=== PATIENT | female | born 1980 | race Caucasian/White ===

== ENCOUNTER 2016-07-16 02:20 | Emergency (ER) | payer BC ==
[2016-07-16 02:26] VITALS: BP 102/72
[2016-07-16] MEDS ORDERED: Sodium Chloride 0.9% 1,000 ML IV ONE (02:40)
[2016-07-16] MEDS ORDERED: Ketorolac 30 MG/ML SDV IVPUSH ONE (02:42)
[2016-07-16] MEDS ORDERED: Ondansetron 4 MG/2 ML SDV IVPUSH ONE (02:43)
[2016-07-16] MEDS ORDERED: Promethazine 12.5 MG in Sodium Chloride 0.9% 100 ML IV ONE (02:44)
--- NOTE | 2016-07-16 02:51 | EDM.PDOC ---
ED HPI GENERAL MEDICAL PROBLEM - General Chief Complaint: General Stated Complaint: NV about 10pm after taken zithromax about 2hrs prior has vomitted x 2 after meds with increase Nausea and diarrhea x 3 DX with pneumonia today in clinic has been taken lots of motrin feels dry and tired Time Seen by Provider: 07/16/16 02:30 Source of Information: Reports: Patient History Limitations: Reports: No limitations - History of Present Illness Onset: today Onset Date: 07/15/16 Onset Time: 22:00 Location: Reports: abdomen Quality: Reports: Burning Severity: moderate Improves with: Reports: None Worsens with: Reports: None Associated Symptoms: Reports: cough, fever/chills, malaise, nausea/vomiting 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, 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, 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(s) (VSS noted tachy 110 sats normal RR normal ) Generalized Pain Score (Numeric/FACES): 4 - Related Data Allergies Allergy/AdvReac Type Severity Reaction Status Date / Time Penicillins Allergy Rash Verified 07/16/16 02:22 Home Meds: Home Meds Promethazine [Phenergan] 25 mg PO Q6H #12 tablet 07/16/16 [Rx] Past Medical History - Past Health History Medical/Surgical History: Denies Medical/Surgical History HEENT History: Reports: None Cardiovascular History: Reports: None Respiratory History: Reports: None Genitourinary History: Reports: None 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: Other (see below) Other OB/BYN History: 2 C sections Musculoskeletal History: Reports: None Endocrine/Metabolic History: Reports: Other (see below) Other Endocrine/Metabolic History: gestational diabetes Immunologic History: Reports: None - Infectious Disease History Infectious Disease History: Reports: None Social & Family History - Tobacco Use Smoking Status *Q: Never Smoker Second Hand Smoke Exposure: No - Alcohol Use Days Per Week of Alcohol Use: 0 - Recreational Drug Use Recreational Drug Use: No ED ROS GENERAL - Review of Systems Review Of Systems: See Below Constitutional: Reports: fever, chills, malaise, night sweats HEENT: Reports: No symptoms Respiratory: Reports: cough. Denies: shortness of breath, wheezing, pleuritic chest pain Cardiovascular: Denies: Chest pain, Lightheadedness Endocrine: Reports: no symptoms GI/Abdominal: Reports: Diarrhea, Nausea, Vomiting. Denies: Bloody stool : Reports: no symptoms Musculoskeletal: Reports: no symptoms Skin: Reports: no symptoms Neurological: Reports: no symptoms Psychiatric: Reports: No symptoms Hematologic/Lymphatic: Reports: no symptoms Immunologic: Reports: no symptoms ED EXAM, GENERAL - Physical Exam Exam: See Below Exam Limited By: No limitations General Appearance: alert, WD/WN, no apparent distress Eye Exam: bilateral eye: PERRL Ears: normal external exam Throat/Mouth: Normal inspection, Normal lips, Normal teeth, Normal gums, Normal oropharynx, Normal voice, No airway compromise Neck: normal inspection, supple, non-tender, full range of motion. No: limited range of motion, lymphadenopathy (L), lymphadenopathy (R) Respiratory/Chest: no respiratory distress, lungs clear, normal breath sounds, no accessory muscle use, chest non-tender. No: respiratory distress, decreased breath sounds, crackles, rales, rhonchi, wheezing Cardiovascular: regular rate, rhythm, no edema, no gallop, no JVD, no murmur, no rub GI/Abdominal: normal bowel sounds, soft, non tender, no organomegaly, no distention. No: distended, guarding, rigid, rebound, tender, abnormal bowel sounds: Extremities: normal inspection, normal range of motion, non-tender, no pedal edema Neurological: alert, oriented, CN II-XII intact, normal cognition, normal gait Psychiatric: normal affect, normal mood Skin Exam: Warm, Dry, Intact, Normal color, No rash Course - Vital Signs Text/Narrative:: will give IV fluids zofran 8mg IV phenergan 12.5mg IV toradol 30 mg IV NS 1 liter bolus DC home cont abx po fluids phenergan 25mg po q 6hrs #12 Zofran 4mg odt q4 hrs prn #12 Last Recorded V/S: Last Vital Signs Temp 38.8 C H 07/16/16 02:23 Pulse 110 H 07/16/16 02:23 Resp 18 07/16/16 02:23 BP 102/72 07/16/16 02:23 Pulse Ox 96 07/16/16 02:23 - Orders/Labs/Meds Orders: Active Orders 24 hr Category Date Time Status Sodium Chloride 0.9% [Normal Saline] 1,000 ml Med 07/16/16 02:40 Active IV .BOLUS Medication Orders Sodium Chloride (Normal Saline) 1,000 mls @ 999 mls/hr IV .BOLUS ONE Stop: 07/16/16 03:40 Last Admin: 07/16/16 02:45 Dose: 999 mls/hr Meds: Medications Generic Name Dose Route Start Last Admin Trade Name Marta PRN Reason Stop Dose Admin Sodium Chloride 1,000 mls @ 999 mls/hr 07/16/16 02:40 07/16/16 02:45 Normal Saline IV 07/16/16 03:40 999 mls/hr .BOLUS ONE Administration Discontinued Medications Generic Name Dose Route Start Last Admin Trade Name Marta PRN Reason Stop Dose Admin Promethazine HCl 12.5 mg/ 100.5 mls @ 400 mls/hr 07/16/16 02:44 07/16/16 02: 53 Sodium Chloride IV 07/16/16 02:59 400 mls/hr ONETIME ONE Administration Ketorolac Tromethamine 30 mg 07/16/16 02:42 07/16/16 02:45 Toradol IVPUSH 07/16/16 02:43 30 mg ONETIME ONE Administration Ondansetron HCl 8 mg 07/16/16 02:43 07/16/16 02:49 Zofran IVPUSH 07/16/16 02:44 8 mg ONETIME ONE Administration Departure - Departure Time of Disposition: 02:55 Disposition: Home, Self-Care 01 Condition: good Clinical Impression: Pneumonia, Nausea vomiting and diarrhea, Tachycardia Prescriptions: Promethazine [Phenergan] 25 mg PO Q6H #12 tablet Referrals: PCP,None [Primary Care Provider] - Forms: ED Department Discharge Additional Instructions: return to ER if anything gets worse or changes cant keep meds or fluids down follow up with primary provider in 24-48 hours - Problem List & Annotations (1) Pneumonia SNOMED Code(s): 924340526 Code(s): J18.9 - PNEUMONIA, UNSPECIFIED ORGANISM Status: Acute Current Visit: Yes (2) Nausea vomiting and diarrhea SNOMED Code(s): 8687278 Code(s): R11.2 - NAUSEA WITH VOMITING, UNSPECIFIED; R19.7 - DIARRHEA, UNSPECIFIED Status: Acute Current Visit: Yes - My Orders Last 24 Hours: My Active Orders 07/16/16 02:40 Sodium Chloride 0.9% [Normal Saline] 1,000 ml IV .BOLUS - Assessment/Plan Last 24 Hours: My Active Orders 07/16/16 02:40 Sodium Chloride 0.9% [Normal Saline] 1,000 ml IV .BOLUS Plan: DC home to self care F/U with pcp return to ER if anything gets worse or changes , continued Nausea vomiting not able to keep down Zithromax fluids of food
== END 2016-07-16 04:14 | disposition home or self-care (01) ==
LOC: VM.ED 02:20
DX: R19.7 Diarrhea, unspecified (principal); R11.2 Nausea with vomiting, unspecified; J18.9 Pneumonia, unspecified organism; R00.0 Tachycardia, unspecified; Z88.0 Allergy status to penicillin
CPT/HCPCS: 96361; 96365; 96375; 99284; J1885; J2405; J2550; J7030; J7050

== ENCOUNTER 2019-10-19 19:01 | Emergency (ER) | payer BC ==
[2019-10-19 19:27] VITALS: BP 142/82; PULSE 72
[2019-10-19] MEDS ORDERED: Morphine 2 MG/ML Syringe IM ONE (19:48)
[2019-10-19] MEDS ORDERED: Promethazine 25 MG/ML SDV IM ONE (19:48)
--- NOTE | 2019-10-19 19:58 | EDM.PDOC ---
ED HPI GENERAL MEDICAL PROBLEM - General Chief Complaint: Headache Stated Complaint: PAIN ON SIDE OF FACE Time Seen by Provider: 10/19/19 19:45 Source of Information: Reports: Patient History Limitations: Reports: No Limitations - History of Present Illness INITIAL COMMENTS - FREE TEXT/NARRATIVE: Patient comes emergency department today with complaints of right orbital pain. Right around noon today the patient had a sudden onset of right throbbing shooting pain that is around the orbit of the right eye. Her eye itself does not hurt. She really does not have much of a headache. She has some nausea and photophobia but no phonophobia. No recent falls or head trauma. No change in her visual acuity. No flashers floaters or loss of central vision. She has had no recent rash lesions or viral type syndromes. She has no paresthesias of the face. She is never had pain like this around her eye. Her eyeball itself does not hurt. She denies any sinus congestion ear pain throat pain or difficulty swallowing. She denies any paresthesias of the face. Has tried some Tylenol and ibuprofen without improvement of the pain. She denies any history of migraines. No eye watering nose running. No history of auto-immune disorders. 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 - Physical Exam Exam: See Below Exam Limited By: No Limitations General Appearance: Alert, WD/WN, Moderate Distress Eye Exam: Bilateral Eye: EOMI, Normal Inspection, PERRL, Other (20/50 RIght and 20/30 left about usual per the patient. ) Ears: Normal External Exam, Normal Canal, Hearing Grossly Normal, Normal TMs Nose: Normal Inspection, Normal Mucosa, No Blood Throat/Mouth: Normal Inspection, Normal Lips, Normal Teeth, Normal Gums, Normal Oropharynx, Normal Voice, No Airway Compromise Head Exam: Atraumatic, Normocephalic, Facial Tenderness (Maxillary sinus right) , Sinus Tenderness (To the right maxillary sinus), Other (There are no cords or tenderness to the temporal region. Her hair when gently touch is not painful. ) . No: Scalp Lacerations, Scalp Swelling, Scalp Abrasions, Scalp Ecchymosis, Scalp Hematoma, Scalp Tenderness, Facial Abrasions, Facial Ecchymosis, Facial Lacerations, Facial Swelling Neck: Normal Inspection, Supple, Non-Tender, Full Range of Motion Respiratory/Chest: No Respiratory Distress, Lungs Clear Cardiovascular: Normal Peripheral Pulses, Regular Rate, Rhythm GI/Abdominal: Normal Bowel Sounds, Soft (Female) Exam: Deferred Rectal (Female) Exam: Deferred Neuro Exam (Abbreviated): Alert, Oriented, CN II-XII Intact, Normal Cognition, Normal Gait, Normal Reflexes, No Motor/Sensory Deficits Extremities: Normal Inspection Psychiatric: Normal Affect, Normal Mood Skin Exam: Warm, Dry, Intact, Normal Color, No Rash Course - Vital Signs Last Recorded V/S: Last Vital Signs Temp 36.8 C 10/19/19 19:01 Pulse 72 10/19/19 19:01 Resp 16 10/19/19 19:01 BP 142/82 H 10/19/19 19:01 Pulse Ox 100 10/19/19 19:01 - Orders/Labs/Meds Orders: Active Orders 24 hr Category Date Time Status Head wo Cont [CT] Stat Exams 10/19/19 19:52 Ordered Labs: Laboratory Tests 10/19/19 10/19/19 Range/Units 19:40 19:40 WBC 5.9 (4.0-10.0) x10^3/uL RBC 4.60 (4.00-5.50) x10^6/uL Hgb 13.3 (12.0-16.0) g/dL Hct 39.0 (33.0-47.0) % MCV 84.8 (78.0-93.0) fL MCH 28.9 (26.0-32.0) pg MCHC 34.1 (32.0-36.0) g/dL RDW Coeff of Mukesh 12.3 (10.0-15.0) % Plt Count 215 (130-400) x10^3/uL Neut % (Auto) 50.6 (50.0-80.0) % Lymph % (Auto) 38.2 (25.0-50.0) % Lau[place] % (Auto) 7.7 (2.0-11.0) % Eos % (Auto) 3.2 (0.0-4.0) % Baso % (Auto) 0.3 (0.2-1.2) % Sodium 142 (136-145) mmol/L Potassium 4.1 (3.5-5.1) mmol/L Chloride 103 (98-107) mmol/L Carbon Dioxide 30 (21-32) mmol/L Anion Gap 13.1 (10-20) mmol/L BUN 17 (7-18) mg/dL Creatinine 0.8 (0.55-1.02) mg/dL Est Cr Clr Drug Dosing 76.15 mL/min Estimated GFR (MDRD) > 60 Glucose 89 (74-106) mg/dL Calcium 8.8 (8.5-10.1) mg/dL C-Reactive Protein 0.9 (<=0.9) mg/dL Meds: Medications Discontinued Medications Generic Name Dose Route Start Last Admin Trade Name Freq PRN Reason Stop Dose Admin Morphine Sulfate 4 mg 10/19/19 19:48 Morphine IM 10/19/19 19:49 ONETIME ONE Morphine Sulfate 4 mg 10/19/19 19:59 Morphine IM 10/19/19 20:00 ONETIME ONE Promethazine HCl 12.5 mg 10/19/19 19:48 Phenergan IM 10/19/19 19:49 ONETIME ONE - Radiology Interpretation Free Text/Narrative:: CT head per radiology no acute intracranial findings. - Re-Assessments/Exams Free Text/Narrative Re-Assessment/Exam: 10/19/19 19:[address] head Phenergan and morphine IM for pain. This is really in the distribution of the maxillary nerve CN v2 distribution consistent with isolated Trigeminal neuralgia. Labs and CT to further assist with workup. Unlikely for a cluster migraine no salivation lacrimation etc. 10/19/19 20:07 CRP is normal which makes GCA or temporal arteritis unlikely and no visual disturbances or visual loss. NO fever anemia or other constitutional symptoms. NO history of PMR. 10/19/19 21:02 The patients pain is almost completely gone and she feels much better. I am not sure what is causing her symptoms. EIther a migraine or a Trigeminal neuralgia. We will be conservative at this time as this is the first episode and if continues consider MRI and Tegretol for possible TN. The patient is comfortable wiht this plan and her questions answered. Departure - Departure Time of Disposition: 20:49 Disposition: Home, Self-Care 01 Clinical Impression: Orbital pain Qualifiers: Laterality: right Qualified Code(s): H57.11 - Ocular pain, right eye - Discharge Information *PRESCRIPTION DRUG MONITORING PROGRAM REVIEWED*: Not Applicable *COPY OF PRESCRIPTION DRUG MONITORING REPORT IN PATIENT KVNG: Not Applicable Instructions: Pain Without a Known Cause, Pain Medicine Instructions, Easy-to- Read Referrals: Lizeth Sterling PA-C [Primary Care Provider] - Forms: ED Department Discharge Additional Instructions: Not sure if this is a headache component or Trigeminal Neuralgia. Lets try rest and decrease stimulation like sleep more, decrease lights and sounds. Lots of fluids over the next few days. Tylenol and or Ibuprofen as needed for pain. If pain not controlled with Migraine therapy above, Try Webster 1 tablet every 6 hrs with food as needed for pain. Caution sedation starter pack from the ED given. #5. Return to the ED if new or worsening symptoms. Follow up with PCP in the next 4-6 days if not improving sooner if worse. Consider MRI and Tegretol for Trigeminal neuralgia or whatever your PCP feels is the concern. Sepsis Event Note - Evaluation Sepsis Screening Result: No Definite Risk - Focused Exam Vital Signs: Vital Signs Temp Pulse Resp BP Pulse Ox 10/19/19 19:01 36.8 C 72 16 142/82 H 100 Date Exam was Performed: 10/19/19 Time Exam was Performed: 20:07 - My Orders Last 24 Hours: My Active Orders 10/19/19 19:52 Head wo Cont [CT] Stat - Assessment/Plan Last 24 Hours: My Active Orders 10/19/19 19:52 Head wo Cont [CT] Stat Assessment:: Right orbital pain, ? migraine vs Trigeminal neuralgia maxillary CN v2. Plan: Not sure if this is a headache component or Trigeminal Neuralgia. Lets try rest and decrease stimulation like sleep more, decrease lights and sounds. Lots of fluids over the next few days. Tylenol and or Ibuprofen as needed for pain. If pain not controlled with Migraine therapy above, Try Webster 1 tablet every 6 hrs with food as needed for pain. Caution sedation starter pack from the ED given. #5. Return to the ED if new or worsening symptoms. Follow up with PCP in the next 4-6 days if not improving sooner if worse. Consider MRI and Tegretol for Trigeminal neuralgia or whatever your PCP feels is the concern.
[2019-10-19] MEDS ORDERED: Morphine 4 MG/ML Syringe IM ONE (19:59)
[2019-10-19 20:00] LABS: CHLORIDE,CL 103 mmol/L (98-107); SODIUM,NA 142 mmol/L (136-145)
[2019-10-19 20:02] LABS: ANION GAP 13.1 mmol/L (10-20)
--- NOTE | 2019-10-19 20:40 | CT ---
[id number] CT/CT Head WO IV EXAM: CT Head WO IV CLINICAL DATA: RIGHT EYE ORBITAL PAIN COMPARISON STUDY: None FINDINGS: No intracranial hemorrhage, extra-axial fluid collection, mass, or acute ischemia. Soft tissues are unremarkable. No significant periorbital edema. The globe is normal in appearance. Paranasal sinuses and mastoid air cells are clear. IMPRESSION: No acute intracranial findings. Unruly Skinner DO 10/19/19 2038 Thank you for allowing us to participate in the care of your patient.
[2019-10-19] MEDS ORDERED: Take Home: Acetaminophen/HYDROcodone 325-5 MG, 5 Tab Pack PO ONE (21:00)
== END 2019-10-19 21:10 | disposition home or self-care (01) ==
LOC: VM.ED 19:01
DX: H57.11 Ocular pain, right eye (principal); Z88.0 Allergy status to penicillin; Z79.899 Other long term (current) drug therapy
CPT/HCPCS: 36415; 70450; 80048; 85025; 86140; 96372; 99284; A9270; J2270; J2550

== ENCOUNTER 2024-12-06 08:17 | Emergency (ER) | payer BC ==
[2024-12-06 08:45] LABS: HEMOGLOBIN 13.8 g/dL (12.0-16.0); MEAN CORPUSCULAR HEMOGLOBIN 28.9 pg (26.0-32.0); MEAN CORPUSCULAR HGB CONC 33.7 g/dL (32.0-36.0); MEAN CORPUSCULAR VOLUME 85.8 fL (78.0-93.0); PLATELET COUNT,PLT 127 x10^3/uL (130-400); RED BLOOD CELL COUNT 4.78 x10^6/uL (4.00-5.50); WHITE BLOOD CELL COUNT,WBC 2.3 x10^3/uL (4.0-10.0)
[2024-12-06 08:59] LABS: BAND PERCENT MAN 3 % (0-6); EOSINOPHILS ABSOLUTE MAN 0.2 x10^3/uL (0.0-0.5); EOSINOPHILS PERCENT MAN 9 % (0-4); LYMPHOCYTES ABSOLUTE MAN 0.6 x10^3/uL (1.0-4.8); LYMPHOCYTES PERCENT MAN 27 % (25-50); MONOCYTES ABSOLUTE MAN 0.2 x10^3/uL (0.0-0.8); MONOCYTES PERCENT MAN 10 % (2-11); NEUTROPHILS ABSOLUTE MAN 1.2 x10^3/uL (1.8-7.7); PLATELET COUNT ESTIMATE ADEQUATE; SEG NEUTROPHILS PERCENT MAN 51 % (50-80)
[2024-12-06 09:09] LABS: A/G RATIO 0.84; ALANINE AMINOTRANSFERASE,ALT 13 U/L (14-59); ALBUMIN 3.1 g/dL (3.4-5.0); ALKALINE PHOSPHATASE 54 U/L (46-116); ANION GAP 11.6 mmol/L (5-15); ASPARTATE AMNIOTRANSFERASE,AST 18 U/L (15-37); BILIRUBIN TOTAL 0.2 mg/dL (0.2-1.0); BLOOD UREA NITROGEN,BUN 11 mg/dL (7-18); CALCIUM 7.9 mg/dL (8.5-10.1); CARBON DIOXIDE,CO2 27 mmol/L (21-32); CHLORIDE,CL 102 mmol/L (98-107); CREATININE 0.9 mg/dL (0.55-1.02); ESTIMATED GFR 82 mL/min (>=60); GLUCOSE RANDOM 97 mg/dL (70-99); POTASSIUM,K 3.6 mmol/L (3.5-5.1); PROTEIN TOTAL,TP 6.8 g/dL (6.4-8.2); SODIUM,NA 137 mmol/L (136-145)
[2024-12-06 09:19] VITALS: BP 128/83; PULSE 116
[2024-12-06 09:29] LABS: CORONAVIRUS COVID-19 NAA NEGATIVE (NEGATIVE); INFLUENZA A NAA NEGATIVE (NEGATIVE); INFLUENZA B NAA NEGATIVE (NEGATIVE); RESPIRATORY SYNCYTIAL VIR NAA NEGATIVE (NEGATIVE)
[2024-12-06 09:43] LABS: APPEARANCE,URINE CLEAR (CLEAR); BILIRUBIN,URINE NEGATIVE (NEGATIVE); COLOR,URINE YELLOW (YELLOW); GLUCOSE,URINE NEGATIVE (NEGATIVE); KETONES,URINE 40 mg/dL (NEGATIVE); LEUKOCYTE ESTERASE,URINE NEGATIVE (NEGATIVE); NITRITE,URINE NEGATIVE (NEGATIVE); OCCULT BLOOD,URINE NEGATIVE (NEGATIVE); PROTEIN,URINE NEGATIVE (NEGATIVE); UROBILINOGEN,URINE 0.2 EU/dL (0.2)
== END 2024-12-06 10:10 | disposition home or self-care (01) ==
LOC: SUPCPDRO 08:17 → VM.ED 08:17
DX: R53.81 Other malaise (principal); Z88.0 Allergy status to penicillin; Z88.1 Allergy status to other antibiotic agents; Z88.8 Allergy status to other drugs, medicaments and biological substances; Z79.899 Other long term (current) drug therapy
CPT/HCPCS: 0241U; 36415; 80053; 81003; 85025; 99284